=== PATIENT | male | born 1995 | race African-American/Black ===

== ENCOUNTER 2016-12-13 22:46 | Emergency (ER) | payer OTHER ==
[~2016-12-13] VITALS: Ht 182.9 cm; Wt 68.0 kg
[2016-12-13 22:51] VITALS: BP 141/75
--- NOTE | 2016-12-13 23:05 | NUR ---
TOOK PT. VIA W/C TO ER BED 8
--- NOTE | 2016-12-13 23:34 | NUR ---
Dr. Reid evaluating patient at bedside.
[2016-12-13] MEDS ORDERED: NACL 0.9% 1,000 ML IV SCH (23:41)
[2016-12-13] MEDS ORDERED: MORPHINE SULFATE 4 MG/ML SYR IM ONE (23:45)
[2016-12-13] MEDS ORDERED: ONDANSETRON 4 MG/2 ML VIAL IVP ONE (23:45)
--- NOTE | 2016-12-14 | NUR ---
PATIENT REFUSED ALL MEDICINE AND IV FLUID, DR. MILLER MADE AWARE.
--- NOTE | 2016-12-14 00:36 | NUR ---
LAB COLLECTED WITH EDUCATION. PATIENT VERBALIZED UNDERSTANDING AND TOLERATED WELL
--- NOTE | 2016-12-14 01:12 | NUR ---
PT TAKEN TO CT
--- NOTE | 2016-12-14 01:28 | NUR ---
PT RETURN FROM CT
[2016-12-14 02:00] VITALS: BP 116/63
--- NOTE | 2016-12-14 02:00 | NUR ---
Patient discharged with v/s stable. Written and verbal after care instructions given and explained. Patient verbalized understanding. Ambulatory with steady gait. All questions addressed prior to discharge. Advised to follow up with PMD.
== END 2016-12-14 02:00 | disposition home or self-care (01) ==
LOC: MED 22:46
DX: K29.20 Alcoholic gastritis without bleeding (principal); Z91.013 Allergy to seafood
CPT/HCPCS: 36415; 74176; 80053; 81001; 82150; 83690; 85025; 99285; J7030